=== PATIENT | male | born 1995 | race American Indian/Alaskan Native ===

== ENCOUNTER 2018-08-31 22:51 | Emergency (ER) | payer OTHER ==
[2018-08-31 23:05] VITALS: BP 114/71
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
== END 2018-09-01 01:10 | disposition left against medical advice (07) ==
LOC: ED 22:51
DX: R51 Headache (principal); Z53.21 Procedure and treatment not carried out due to patient leaving prior to being seen by health care provider
CPT/HCPCS: 70450; 71046; 72125

== ENCOUNTER 2018-10-24 19:42 | Emergency (ER) | payer OTHER ==
--- NOTE | 2018-10-24 20:15 | Emergency Department Report ---
Blank Doc - Documentation Documentation: c/o painful urination with d/c. No fever or abd pain. Hx/o Sz on no meds.
--- NOTE | 2018-10-24 20:21 | Emergency Department Report ---
Chief Complaint: Urogenital-Male Stated Complaint: PAINFUL URINATION - HPI History of Present Illness: c/o painful urination with d/c times 2 weeks. No fever or abd pain. Hx/o Sz on no meds. No fevers. - ROS Review of Systems: penile discharge and dysuria - Exam Vital Signs: Vital Signs 10/24/18 20:11 Temperature 97.9 F Pulse Rate 75 Respiratory 18 Rate Blood Pressure 116/67 O2 Sat by Pulse 98 Oximetry Physical Exam: AXO NAD No abd tenderness. MSE screening note: Focused history and physical exam performed. Due to findings the following was ordered: Patient was referred to Health department. ED Disposition for MSE Clinical Impression: Possible exposure to STD Condition: Stable Referrals: [facility] [Outside] - 3-5 Days [facility] [Outside] - 3-5 Days [facility] [Outside] - 3-5 Days [facility] [Outside] - 3-5 Days
== END 2018-10-24 22:00 | disposition home or self-care (01) ==
LOC: ED 19:42
DX: Z20.2 Contact with and (suspected) exposure to infections with a predominantly sexual mode of transmission (principal)
CPT/HCPCS: 99282